=== PATIENT | male | born 1985 | race Caucasian/White ===

== ENCOUNTER 2016-09-04 08:10 | Emergency (ER) | payer BC ==
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
[2016-09-04] MEDS ORDERED: HYDROcodone/ACETAMINOPHEN 1 EACH TABLET PO ONE (09:37)
[2016-09-04] MEDS ORDERED: HYDROcodone/ACETAMINOPHEN 1 EACH TABLET ONE (09:39)
[2016-09-04 09:48] VITALS: BP 105/70
[2016-09-04] MEDS ORDERED: DIPHTH,PERTUSS(ACELL),TET VAC 0.5 ML VIAL IM ONE ×2 (09:49→09:50)
== END 2016-09-04 10:01 | disposition home or self-care (01) ==
LOC: ER 08:10
DX: S22.32XA Fracture of one rib, left side, initial encounter for closed fracture (principal); S62.306A Unspecified fracture of fifth metacarpal bone, right hand, initial encounter for closed fracture; Y04.2XXA Assault by strike against or bumped into by another person, initial encounter; S00.81XA Abrasion of other part of head, initial encounter; F17.210 Nicotine dependence, cigarettes, uncomplicated; Z23 Encounter for immunization

== ENCOUNTER 2016-09-19 07:19 | Observation (INO) | payer BC ==
[2016-09-19] MEDS ORDERED: ONDANSETRON HCL/PF 2 MG/ML VIAL IV ONE (08:12)
[2016-09-19] MEDS ORDERED: KETOROLAC TROMETHAMINE 30 MG/ML VIAL IV ONE (08:12)
[2016-09-19] MEDS ORDERED: ONDANSETRON HCL/PF 2 MG/ML VIAL ONE (08:21)
[2016-09-19] MEDS ORDERED: KETOROLAC TROMETHAMINE 30 MG/ML VIAL ONE (08:21)
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
[2016-09-19 08:26] LABS: Hematocrit 41.9 % (42.0-52.0); Hemoglobin 15.3 gm/dL (13.5-18.0); Mean Cell Volume 89.5 fl (78-100); Mean Corpuscular Hemoglobin 32.7 pg (27-31); Mean Corpuscular Hgb Conc 36.5 g/dl (32-36); Mean Platelet Volume 9.9 fl (6.0-9.5); Neutrophil # 16.6 K/mm3 (1.3-6.0); Platelet Count 326 K/mm3 (150-450); Red Blood Count 4.68 M/mm3 (4.7-6.0); Red Cell Distribution Width 11.9 % (11.5-14.0); White Blood Count 19.1 K/mm3 (4.0-10.5)
[2016-09-19 08:42] LABS: Albumin * 3.9 gm/dl (3.4-5.0); Anion Gap 14.6 mmol/L (6.8-13.8); BUN/Creatinine Ratio 5.8 (9.0-21.6); Ca. Corrected For Albumin 9.3 mg/dL (8.4-10.2); Calcium * 9.5 mg/dL (7.9-10.9); Carbon Dioxide 25.5 mmol/L (24-32.6); Potassium 3.1 mmol/L (3.4-4.6); Total Protein 7.9 gm/dL (6.2-8.2)
[2016-09-19] MEDS ORDERED: NORMAL SALINE 1,000 ML IV ONE (08:46)
[2016-09-19] MEDS ORDERED: PIPERACILLIN SODIUM/TAZOBACTAM 3.375 GM VIAL IV ONE (09:08)
[2016-09-19] MEDS ORDERED: PIPERACILLIN SODIUM/TAZOBACTAM 3.375 GM in DEXTROSE 5 % IN WATER 100 ML IV ONE ×2 (09:30)
[2016-09-19] MEDS ORDERED: diphenhydrAMINE HCL 50 MG/ML VIAL IV PRN (10:21)
[2016-09-19] MEDS ORDERED: ONDANSETRON HCL/PF 2 MG/ML VIAL IV PRN (10:21)
[2016-09-19] MEDS ORDERED: KETOROLAC TROMETHAMINE 30 MG/ML VIAL IV PRN (10:21)
[2016-09-19] MEDS ORDERED: PROMETHAZINE HCL 5 MG in DEXTROSE 5 % IN WATER 50 ML IV PRN ×2 (10:21)
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
[2016-09-19] MEDS: HYDROmorphone HCL 1 MG/ML DISP.SYRIN IV PRN ×3 (11:34→14:45)
[2016-09-19] MEDS ORDERED: RINGERS SOLUTION,LACTATED 1,000 ML IV ONE ×2 (12:20→12:45)
[2016-09-19] MEDS ORDERED: ceFAZolin SODIUM/DEXTROSE,ISO 2 GM in Premix Bag 1 BAG IV ONE (12:30)
[2016-09-19] MEDS ORDERED: ceFAZolin SODIUM 1 GM VIAL IV ONE (12:35)
[2016-09-19] MEDS ORDERED: BUPIVACAINE HCL/EPINEPHRINE 50 ML VIAL IJ ONE ×2 (12:45)
[2016-09-19] MEDS ORDERED: ISOPROPYL ALCOHOL 480 APPL BTL MC ONE (12:45)
[2016-09-19] MEDS ORDERED: MUPIROCIN 22 APPL TUBE TP ONE (12:52)
[2016-09-19] MEDS: PANTOPRAZOLE SODIUM 40 MG in NORMAL SALINE 100 ML IV SCH (15:13)
[2016-09-19] MEDS: NICOTINE 21 MG PATC TD SCH (15:14)
[2016-09-19] MEDS: oxyCODONE HCL/ACETAMINOPHEN 1 TAB TABLET PO PRN ×2 (16:21→23:46)
[2016-09-19] MEDS: MORPHINE SULFATE 2 MG/ML DISP.SYRIN IV PRN ×2 (17:43→19:35)
[2016-09-19] MEDS: RINGERS SOLUTION,LACTATED 1,000 ML IV PRN (18:04)
--- NOTE | 2016-09-19 19:21 | OR ---
Operative Report - Dictated Report Narrative: DATE OF OPERATION: 09/19/2016 PREOPERATIVE DIAGNOSIS: Cholelithiasis and acute cholecystitis POSTOPERATIVE DIAGNOSIS: Same (pathology pending) OPERATION: Laparoscopic cholecystectomy SURGEON: MEDINA Johnston MD ANESTHESIA Gen. endotracheal Reji Anaya CRNA INDICATIONS FOR PROCEDURE: The patient is a 31-year-old male presented to the emergency room with a one-day history of severe right upper quadrant abdominal pain. He was found to have an elevated white blood cell count and ultrasound evidence of cholelithiasis with acute cholecystitis. FINDINGS: Acutely inflamed gallbladder with stones NARRATIVE OF PROCEDURE: The patient was identified preoperatively. Prior to the administration of anesthetic a multidisciplinary timeout was observed. With the patient in the supine position, SCDs were placed, 2 g of intravenous Ancef administered, and general endotracheal anesthetic administered. The patient's abdomen was prepped with Betadine solution and a generous operating field outlined with 4 sterile towels. The remainder the patient was covered with a sterile disposable drape. An infraumbilical skin incision was made. Dissection was carried along the umbilical stalk until the fascia of the linea alba was encountered. This was incised. The peritoneum was then elevated and incised to allow entry into the abdomen under direct vision. A Hussan cannula was placed, and the abdomen insufflated with CO2. The laparoscopic camera was introduced and the abdomen briefly explored. The liver and stomach appeared normal. The apex of an acutely inflamed gallbladder was visible. Those portions of the omentum, small bowel, and colon visualized appeared normal. Next under direct vision 3 additional working ports were inserted through separate skin incisions, one in the subxiphoid, one in the right upper quadrant , and one in the right flank. The gallbladder was decompressed, and the puncture site grasped. The apex of the gallbladder was retracted cephalad. There were omental adhesions to the fundus of the gallbladder which were lysed by combination of electrocautery and blunt dissection. The cystic duct was dissected free for a sufficient distance for confident identification. It was doubly clipped and divided. The cystic artery was identified doubly clipped and divided. The gallbladder was then removed from the liver bed by retrograde electrocautery dissection. There was marked edema in the liver bed. Prior to severing the last attachments of the gallbladder the liver bed was inspected and found to be hemostatic with no evidence of bile leak. The previously placed clips were seen to be intact. The right upper quadrant was suctioned clean. The last attachments of the gallbladder were divided. It was placed in an Endobag and parked in the right upper quadrant. The smaller working ports were withdrawn under direct vision to ensure entry site hemostasis. The gallbladder was removed in conjunction with the Hussan cannula. The pneumoperitoneum was allowed to escape, and after receiving a correct sponge needle and instrument count attention was turned to closing the abdomen. The fascia and peritoneum at the umbilicus were approximated with interrupted sutures of #1 Vicryl. Skin incisions were approximated with interrupted vertical mattress sutures of 4-0 nylon. The operative sites were washed and dried. Dressings of Bactroban ointment and large Band-Aids were applied to the small port sites. The umbilical incision was dressed with Bactroban ointment, 2 x 2, large Band-Aid and Medipore tape. The operative procedure was terminated at this point. The patient tolerated the anesthetic and procedure well without complication. There was no measurable blood loss. The gallbladder was submitted to pathology. 0.5% Marcaine with epinephrine was used for local anesthetic infiltration. The patient was transferred to the recovery room awake, extubated, and in stable condition. Reviewed and electronically signed
[2016-09-20] MEDS: RINGERS SOLUTION,LACTATED 1,000 ML IV PRN (02:02)
[2016-09-20] MEDS: MORPHINE SULFATE 2 MG/ML DISP.SYRIN IV PRN ×2 (02:04→07:35)
[2016-09-20] MEDS: oxyCODONE HCL/ACETAMINOPHEN 1 TAB TABLET PO PRN ×3 (05:45→14:56)
[2016-09-20 14:54] VITALS: BP 117/78
[2016-09-20] MEDS: PANTOPRAZOLE SODIUM 40 MG in NORMAL SALINE 100 ML IV SCH (14:56)
[2016-09-20] MEDS: NICOTINE 21 MG PATC TD SCH (15:00)
--- NOTE | 2016-09-20 16:50 | DS ---
(1) Cholecystitis, acute with cholelithiasis Problem: Acute Qualifiers: Cholelithiasis location: gallbladder Biliary obstruction: without biliary obstruction Qualified Code(s): K80.00 - Calculus of gallbladder with acute cholecystitis without obstruction Description of Stay: Underwent uneventful laparoscopic cholecystectomy for acute cholecystitis with cholelithiasis. Chlorhexidine wipes with pre and post-op IV antibiotics. VTE prophylaxis with SCD's and early ambulation. VS remained normal. presenting pain resolved and incisional discomfort controlled with PO Percocet. Tolerated advanced diet. Ambulated independently. Dressings remained clean. Procedures Performed: see notes below - laparoscopic cholecystectomy Discharge Disposition: Home self care Disposition: Home self-care Condition: Good Discharge Activity: Activity as tolerated, No Lifting Discharge Diet: General/regular food Problem Oriented Discharge Instructions to Patient/Family: Laparoscopic Cholecystectomy, Care After Additional Patient Instructions (free text): To call office [phone] to make appointment for 09/27/16 Prescriptions (Any new or edited meds): oxyCODONE HCL/ACETAMINOPHEN [Percocet 5 MG/325 MG] 2 tab PO Q4H PRN #30 tablet PRN Reason: Moderate Pain Complete Home Medications List: Complete Home Medication List: oxyCODONE HCL/ACETAMINOPHEN [Percocet 5 MG/325 MG] 2 tab PO Q4H PRN #30 tablet 09/20/16
== END 2016-09-20 17:50 | disposition home or self-care (01) ==
LOC: ER 07:19 → MS 10:18
PROVIDERS: ADMIT Surgery; ATTEND Surgery
PROC: 0FT44ZZ Resection of Gallbladder, Percutaneous Endoscopic Approach (ICD-10-PCS; principal; 2016-09-19 16:45)
DX: K80.00 Calculus of gallbladder with acute cholecystitis without obstruction (principal)
CPT/HCPCS: 36415; 47562; 76705; 80053; 82150; 83690; 85025; 88304; 96365; 96372; 96375; 99284; G0378